=== PATIENT | male | born 1950 | race Caucasian/White ===

== ENCOUNTER 2018-12-09 23:10 | Inpatient (IN) | payer SELFPAY ==
[~2018-12-09] VITALS: Ht 175.3 cm; Wt 88.0 kg
[2018-12-10] MEDS ORDERED: NITROGLYCERIN OINT 1GM/INCH UDPKT TD ONE (00:30)
[2018-12-10] MEDS ORDERED: ASPIRIN 81MG TABLET PO ONE (00:30)
[2018-12-10 00:56] LABS: BASOPHILS % 0.4 % (0.0-2.0); EOSINOPHILS % 4.1 % (0.0-5.0); HEMATOCRIT. 36.6 % (42.0-52.0); HEMOGLOBIN. 12.1 g/dL (14.0-18.0); LYMPHOCYTES % 18.3 % (20.0-50.0); MEAN CORPUSCULAR HEMOGLOBIN 29.4 pg (28.0-32.0); MEAN CORPUSCULAR VOLUME 88.9 fL (80.0-94.0); MEAN PLATELET VOLUME 8.1 fl (7.4-10.4); MONOCYTES % 9.8 % (2.0-8.0); NEUTROPHILS % 67.4 % (40.0-76.0); PLATELET 208 x1000/uL (130-400); RED BLOOD CELL COUNT 4.11 mill/uL (4.7-6.1); RED CELL DISTRIBUTION WIDTH 12.6 % (11.6-14.6)
[2018-12-10 01:00] LABS: CHLORIDE 108 mEq/L (98-107)
[2018-12-10] MEDS ORDERED: DOCUSATE SODIUM 100MG CAPSULE PO PRN (07:15)
[2018-12-10] MEDS ORDERED: CLONIDINE 0.1MG TABLET PO PRN (07:15)
[2018-12-10] MEDS ORDERED: MAGNESIUM/ALUMINUM HYDROXIDE/SIMETHICONE 30ML UDC PO PRN (07:15)
[2018-12-10] MEDS ORDERED: NITROGLYCERIN 0.4MG TABLET SL SL PRN (07:15)
[2018-12-10] MEDS ORDERED: ACETAMINOPHEN 325MG TABLET PO PRN (07:15)
[2018-12-10] MEDS ORDERED: ONDANSETRON HCL 4MG/2ML INJ IV PRN (07:15)
[2018-12-10] MEDS ORDERED: HYDROCODONE/ACETAMINOPHEN 5/325MG TABLET PO PRN (07:15)
[2018-12-10 12:19] LABS: PHENCYCLIDINE URINE SCREEN NEGATIVE (NEGATIVE)
[2018-12-10 12:20] LABS: *AMPHETAMINES SCREEN URINE NEGATIVE (NEGATIVE); *BARBITURATES SCREEN URINE NEGATIVE (NEGATIVE); *BENZODIAZEPINES SCREEN URINE NEGATIVE (NEGATIVE); *COCAINE SCREEN URINE NEGATIVE (NEGATIVE); CANNABINOID URINE SCREEN NEGATIVE (NEGATIVE); METHADONE URINE SCREEN NEGATIVE (NEGATIVE); OPIATES URINE SCREEN PRESUMTIVE POSITIVE (NEGATIVE)
[2018-12-10 15:05] LABS: CREATINE KINASE 203 IU/L (39-308)
[2018-12-10 15:06] LABS: CREATINE KINASE MB FRACTION 2.5 ng/mL (0.5-3.6)
[2018-12-10 15:07] LABS: T4 FREE 0.77 ng/dL (0.76-1.46)
[2018-12-10] MEDS: ENOXAPARIN 40MG/0.4ML SYR SUBCUT SCH (16:54)
[2018-12-10 17:42] VITALS: BP 148/71
[2018-12-10 17:49] VITALS: BP 148/76
[2018-12-10] MEDS ORDERED: PNEUMOCOCCAL 23-VAL P-SAC VAC 0.5 ML IM ONE (18:15)
[2018-12-10 20:05] VITALS: BP 127/74
[2018-12-11 00:05] VITALS: BP 124/69
[2018-12-11 01:45] LABS: CREATINE KINASE 174 IU/L (39-308)
[2018-12-11 01:46] LABS: CREATINE KINASE MB FRACTION 1.8 ng/mL (0.5-3.6)
[2018-12-11 04:00] VITALS: BP 125/62
[2018-12-11 07:24] LABS: BASOPHILS % 0.2 % (0.0-2.0); EOSINOPHILS % 4.4 % (0.0-5.0); HEMOGLOBIN. 12.1 g/dL (14.0-18.0); LYMPHOCYTES % 21.6 % (20.0-50.0); MEAN CORPUSCULAR HEMOGLOBIN 29.6 pg (28.0-32.0); MEAN CORPUSCULAR VOLUME 90.1 fL (80.0-94.0); NEUTROPHILS % 65.8 % (40.0-76.0); PLATELET 198 x1000/uL (130-400); RED BLOOD CELL COUNT 4.11 mill/uL (4.7-6.1); RED CELL DISTRIBUTION WIDTH 12.8 % (11.6-14.6)
[2018-12-11 07:37] LABS: CHLORIDE 109 mEq/L (98-107)
[2018-12-11 07:56] LABS: HDL CHOLESTEROL 36 mg/dL (40-59)
[2018-12-11 07:57] LABS: LDL CHOLESTEROL 81 mg/dL (5-100)
[2018-12-11 08:00] VITALS: BP 146/81
[2018-12-11] MEDS ORDERED: ASPIRIN 81MG TABLET PO SCH (09:00)
[2018-12-11] MEDS ORDERED: REGADENOSON 0.4 MG/5 ML IV NR (09:30)
[2018-12-11] MEDS ORDERED: REGADENOSON 0.4 MG/5 ML IV ONE (10:56)
[2018-12-11 16:00] VITALS: BP 158/73
[2018-12-11] MEDS: ENOXAPARIN 40MG/0.4ML SYR SUBCUT SCH (18:26)
[2018-12-11 20:00] VITALS: BP 118/77
[2018-12-12] VITALS: BP 120/78
[2018-12-12 04:00] VITALS: BP 116/70
== END 2018-12-12 07:21 | disposition left against medical advice (07) | DRG 203 ==
LOC: ER 23:10 → 7WST 12-10 02:20 → EDBEDREQ 12-10 02:24 → EDBEDREQTM 12-10 02:24 → SUPCPDRO 12-10 07:04 → ENRESERV 12-10 15:23
PROVIDERS: ADMIT Hospitalist; ATTEND Hospitalist
DX: R07.9 Chest pain, unspecified (principal)
CPT/HCPCS: 36415; 71045; 78452; 80061; 80305; 82550; 82553; 83880; 84439; 84443; 84484; 90732; 93005; 93017; 93306; 93970; 99285; A9500; J1650; J2785